=== PATIENT | male | born 1940 | race Caucasian/White ===

== ENCOUNTER 2016-08-04 01:52 | Inpatient (IN) | payer OTHER ==
[~2016-08-04] VITALS: Ht 180.3 cm; Wt 79.9 kg
[~2016-08-04 01:52] MED LIST: LISINOPRIL20 M1 PO; PRAVASTATIN SOD40 M2 PO
--- NOTE | 2016-08-04 09:31 | Admission Core Measures ---
Admission Meds I reviewed the following Meds: Current Medications Sig/Rupesh Start time Last Medication Dose Stop Time Status Admin Acetaminophen 975 MG ONCE 08/04 0000 NR (Tylenol) 08/04 2358 Cefazolin Sodium 2,000 MG ONCE 08/04 0000 NR (Kefzol-Ancef Inj) 08/04 2358 Oxycodone HCl 10 MG ONCE 08/04 0000 NR (Roxicodone) 08/04 2358 Acute Coronary Syndrome Inclusion Criteria ACS Diagnosis No Inpatient Core Measures LDL Reminder: If No, please order W/I first 24hr of stay Congestive Heart Failure Inclusion Criteria CHF Diagnosis No Cerebrovascular accident Inclusion Criteria CVA/TIA Diagnosis No Inpatient Core Measures Bedside Swallow Eval Reminder: If BSE failed, place ST order Antithrombotic Reminder: Order Antithrombotic Medication by end of day 2 Antithrombotic Reminder: Document Reason Antithrombotic Not ordered by end of day 2 AFIB/Flutter Reminder: If Present, add to problem list AFIB/Flutter Reminder: Order Anticoag Medication for pts with AFIB/Flutter Atherosclerosis Reminder: If Present, add to problem list LDL Reminder: If No, please order W/I first 24hr of stay PT Order Reminder: If No, please order Venous thromboembolism Inpatient Core Measures VTE Risk Factors: Age > 40, Surgery No [facility] VTE prophylaxis d/t No contraindications No VTE Pharm Prophylaxis d/t No contraindications Inclusion Criteria - Per Current guidelines, there needs to be overlap - treatment for the first 5 days of Warfarin therapy. - Parenteral Anticoagulation (IV or SC) needs to be - given along with Warfarin therapy. VTE Diagnosis No VTE Type NONE VTE Confirmed by (Test) NONE Problem List As ranked by this Provider includes Assessment & Plan 1. Status post total hip replacement, right 2. Hypertension HOME MEDS Home Med List Lisinopril 20 MG TABLET 1 TAB PO NIGHTLY HTN (Reported) Pravastatin Sodium 40 MG TABLET 1 TAB PO QPM CHOLESTEROL (Reported)
[2016-08-04] MEDS ORDERED: DILAUDID2 M1 PO (09:39)
[2016-08-04] MEDS ORDERED: MIRALAX17 G1 PO (09:39)
[2016-08-04] MEDS ORDERED: MS CONTIN30 M1 PO (09:39)
[2016-08-04] MEDS ORDERED: ASPIRIN EC325 M2 PO (09:39)
[2016-08-04] MEDS ORDERED: COLACE100 M1 PO (09:39)
--- NOTE | 2016-08-04 09:47 | Patient Discharge Instructions ---
Discharge Instructions General Discharge Information You were seen/treated for: primary osteoarthritis You had these procedures: total hip replacement (08/04/16) Watch for these problems: fever>101.5, excessive drainage or inability to bear weight on the operative extremity Do not soak the wound: Yes No bath, but you may shower: Yes Other wound care: dry dressing change. ok to shower. no baths. no ointments of any kind. ice as needed. visiting nurse will remove sutures if applicable. Diet Continue normal diet: Yes Recommended Diet: Regular Activity Full Activity/No Limits: Yes Activity Self Limited: Yes Activity Limited to: Weight bear as tolerated Other activity limits: no restrictions. no hip precautions. Additional ACTIVITY Info: rolling walker assistance. Acute Coronary Syndrome Inclusion Criteria At DC or during hospital stay patient has or had the following: ACS DIAGNOSIS No Discharge Core Measures Meds if any: Prescribed or Continued at Discharge Meds if any: NOT Prescribed or Continued at Discharge Congestive Heart Failure Inclusion Criteria At DC or during hospital stay patient has or had the following: CHF DIAGNOSIS No Discharge Core Measures Meds if any: Prescribed or Continued at Discharge Meds if any: NOT Prescribed or Continued at Discharge Cerebrovascular accident Inclusion Criteria At DC or during hospital stay patient has or had the following: CVA/TIA Diagnosis No Discharge Core Measures Meds if any: Prescribed or Continued at Discharge Meds if any: NOT Prescribed or Continued at Discharge Venous thromboembolism Inclusion Criteria VTE Diagnosis No VTE Type NONE VTE Confirmed by (Test) NONE Discharge Core Measures - Per Current guidelines, there needs to be overlap - treatment for the first 5 days of Warfarin therapy. - If discharged on Warfarin prior to 5 days of - overlap therapy, the patient will need to be - assessed for post discharge needs including - *Post discharge parental anticoagulation - *Warfarin and/or parental anticoagulation education - *Follow up date to check INR post discharge At least 5 days overlap therapy as Inpatient No Meds if any: Prescribed or Continued at Discharge Note: Overlap Therapy is Warfarin and Anticoagulant Meds if any: NOT Prescribed or Continued at Discharge
--- NOTE | 2016-08-04 09:51 | Surg Short-stay <48hrs Dis Sum ---
Visit Information Visit Dates Admission Date: 08/04/16 Discharge Date: 08/04/16 Surgical Short Stay DC Summary Admission Diagnosis: primary osteoarthritis Final Diagnosis: same, s/p right total hip replacement (08/04/16) Procedure(s): right total hip replacement (08/04/16) Summary/Significant Findings: Patient was admitted to the hospital for an elective total joint replacement. The procedure was tolerated well and the patient was transferred to a general surgical floor. Diet was advanced and tolerated and the patient voided spontaneously. The patient was evaluated and treated by physical therapy, and cleared to go home with services. Condition at Discharge: stable Discharge Disposition: home health services Discharge instructions provided to patient/family: Yes Post discharge follow-up plan: follow up in 6 weeks unless otherwise indicated pre-printed instructions provided
--- NOTE | 2016-08-04 10:28 | RADIOLOGY REPORT ---
EXAMINATION: XR HIP, RIGHT CLINICAL INFORMATION: Postop status post right hip replacement. COMPARISON: None TECHNIQUE: AP neutral and frog-leg lateral of the right hip. FINDINGS: A right hip prosthesis is intact. There is expected subcutaneous gas. Alignment is adequate. IMPRESSION: Expected appearance of right hip prosthesis following placement.
[2016-08-04] MEDS ORDERED: MORPHINE SULFAT15 M3 PO (10:56)
[2016-08-04 12:52] VITALS: BP 130/72
--- NOTE | 2016-08-04 13:11 | PN- Orthopedic ---
Subjective Subjective: The patient was seen this evening postoperatively. He reports that his pain is under adequate control and he has no complaints at the current time. He has yet to void postoperatively. Objective Vital Signs and I&Os Vital Signs Date Time Temp Pulse Resp B/P B/P Pulse O2 O2 Flow FiO2 Mean Ox Delivery Rate 08/04 1252 97.8 74 18 130/72 94 Room Air Intake & Output 08/04 1600 08/04 0800 08/04 0000 08/03 1600 08/03 0800 08/03 0000 Intake Total Output Total Balance Patient 176 lb Weight Physical Exam: Gen.: Alert and obvious distress Skin: Warm and dry Cardiac: S1-S2 regular Pulmonary: Bilateral breath sounds are equal with good exchange Extremities: Bilateral lower extremities warm without calf tenderness or significant edema. Gross motor and sensory are intact. Right hip surgical dressing is clean, dry, and intact. Assessment/Plan Assessment/Plan Assessment: 76-year-old male status post right total hip arthroplasty. Postoperative the patient is progressing as expected and his pain is under adequate control. Plan: Out of bed with physical therapy patient is weightbearing's tolerated Continue current pain regiment Monitor for postoperative void Resume home medications 2 doses of postoperative prophylactic antibiotics Advance diet as tolerated GI and DVT prophylaxis first dose of aspirin to start tonight Incentive spirometry Possible discharge later today if cleared by physical therapy and voids adequately Core Measures/Miscellaneous Venous Thromboembolism VTE Risk Factors: Age > 40, Surgery VTE Contraindications: No Contraindications VTE Diagnosis: No VTE Type: NONE VTE Confirmed by (Test): NONE Beta Betty Is Beta Betty a Home Med? No Antibiotics Is Patient on Antibiotics? Yes If Yes: prophylaxis
--- NOTE | 2016-08-04 15:04 | Operative Report ---
Operative/Inv Procedure Report Surgery Date: 08/04/16 Name of Procedure: Right total hip replacement Pre-Operative Diagnosis: Primary right hip DJD Post-Operative Diagnosis: Same Estimated Blood Loss: 300 Surgeon/Pulp Roller: DEB HERNANDEZ,YOGESH Owens Anesthesia: block Operative/Procedure Note Note: Description of Procedure: The patient was taken to the operating room and positively identified. After induction of spinal anesthesia and administration of appropriate pre-operative antibiotics, the patient was positioned supine on the operating room table and all bony prominences were well padded. After performing a surgical timeout, the right lower extremity was prepped and draped in the usual sterile fashion. A direct anterior approach was made to the right hip. The incision was carried sharply through superficial soft tissues to the level of the fascia. Meticulous hemostasis was maintained with Bovie electocautery. The fascia over the tensor fascia susana muscle was opened sharply and the interval between the TFL and the sartorius was entered bluntly taking care to stay lateral to the lateral femoral cutaneous nerve. Retractors were placed around the femoral neck and the pericapsular fat was identified. The ascending branches of the lateral femoral circumflex vessels were identified and carefully coagulated. The pericapsular fat and anterior capsule were then resected. A napkin ring osteotomy was performed and the femoral head was removed without difficulty. Attention was then turned to the acetabulum. After appropriate placement of retractors, the acetabulum was exposed. Soft tissue was cleaned from the acetabular margin and notch. Overhanging osteophytes were removed and the teardrop was exposed. The acetabulum was then sequentially reamed to accept a 64 mm Wilson Tritanium hemispherical cluster hole shell. This was impacted into place in the appropriate position and 2 screws were used for supplemental fixation. It was then Fitted with a 36 mm Trident X3 zero degree polyethylene insert. Attention was then turned to the femur. After performing the appropriate ligament releases, the proximal femur was exposed. It was then sequentially broached to accept a size 7 Reliance accolade 2 stem. This was trialed for leg length and stability. The trial component was removed and the final component was impacted into place. The trunnion was carefully cleaned and fit with a 36 mm, +0 Biolox delta ceramic femoral head. The hip was reduced and put through a full range of motion and found to be stable. The articular space was then irrigated with sterile saline. The periarticular soft tissues were infilitrated with Marcaine. The fascial layer was closed with interrupted #1 vicryl suture and the skin was re-approximated with interrupted 2 -0 vicryl. The skin was closed with a running 3-0 V-Lock suture. Steri-strips and a sterile dressing were applied. The patient was awakened and taken to the recovery room in satisfactory condition.
--- NOTE | 2016-08-04 17:56 | NUR ---
LATE ENTRY: PT ARRIVED TO FLOOR AT 1215. VSS. PT ALERT AND ORIENTED, DENIES ANY PAIN, R HIP DRSNG C/D/I. PT STATES HE WANTS TO GO HOME TODAY. AROUND 1430 PT CLEARED BY PT TO GO HOME. AROUND 1700 PT VOIDED AT TOTAL OF 450ML. PT STATES HE IS READY FOR DISCHARGE.
== END 2016-08-04 19:02 | disposition home health service (06) | DRG 470 ==
LOC: SDA 01:52 → ENRESERV 10:41 → ENTRNSPT 11:41 → EDTRNSPTSTS 11:53 → 2NB 12:09 → CMPTRNSPT 12:10 → ENPENDDIS 14:26 → 2NB 19:02
PROVIDERS: ADMIT Orthopaedic Surgery
PROC: 0SR904A Replacement of Right Hip Joint with Ceramic on Polyethylene Synthetic Substitute, Uncemented, Open Approach (ICD-10-PCS; principal; 2016-08-04)
DX: M16.11 Unilateral primary osteoarthritis, right hip (principal); I10 Essential (primary) hypertension; M25.751 Osteophyte, right hip; E78.5 Hyperlipidemia, unspecified; Z85.51 Personal history of malignant neoplasm of bladder; R33.9 Retention of urine, unspecified
CPT/HCPCS: 2NBSP; 73502-RT; 97116-GO; 97161-GP; 97530-GO; J0131; J0690; J0735; J3490; J7042